=== PATIENT | male | born 1995 | race Caucasian/White ===

== ENCOUNTER 2017-02-09 03:24 | Emergency (ER) | payer OTHER ==
[~2017-02-09] VITALS: Ht 180.3 cm; Wt 60.0 kg
[2017-02-09] MEDS ORDERED: ALBUT/IPRATROP 3MG/0.5MG NEB 3 ML VIAL INH STA (03:32)
[2017-02-09] MEDS ORDERED: SODIUM CHLORIDE 0.9% 1000ML 1,000 ML IV STA (03:32)
[2017-02-09 03:37] VITALS: TEMP 36.5; O2SAT 98; Ht 180.3 cm; Wt 60.0 kg
--- NOTE | 2017-02-09 03:37 | EMERGENCY ROOM VISIT NOTE ---
History Report prepared by Silvana: Flip Moore Under the Supervision of: Dr. Joe Eastman M.D. First contact with patient: 03:26 Stated Complaint: ANXIETY/NEAR SYNCOPE History of Present Illness The patient is a 21 year old male who presents to the Emergency Room via EMS with complaints of a near-syncopal episode that occurred prior to arrival this morning. He says that he woke up prior to arrival feeling anxious and short of breath. Per EMS, the patient was diaphoretic. He states that he felt like he was about to pass out, and he was dizzy. The patient notes that his heart felt like it was racing as well. He adds that he has faint chest pain and a faint headache. The patient says that he has been eating and drinking fine, and denies any falls or injuries. He adds that he has been helping out with a reconstruction of a house, so he may have inhaled some toxins. The patient denies any chronic medical problems or history of blood clots. He says that he smokes a pack and a half of cigarettes per day. Source of History: patient, EMS Onset: Prior to arrival this morning Position: other (global - near syncope) Timing: other (episode) Associated Symptoms: + headache, + chest pain, + SOB Note: Associated symptoms: [place] anxious, dizzy. Diaphoretic. [place] like going to pass out with heart racing. Denies falls or injuries. Review of Systems See HPI for pertinent positives & negatives. A total of 10 systems reviewed and were otherwise negative. Past Medical & Surgical Medical Problems: (1) No chronic problems Family History No pertinent family history Social History Smoking Status: Current Every Day Smoker Marital Status: single Occupation Status: employed Physical Exam Vital Signs Date Time Temp Pulse Resp B/P (MAP) Pulse Ox O2 Delivery O2 Flow Rate FiO2 02/09/17 05:48 77 16 119/69 98 02/09/17 05:44 77 16 119/69 98 Room Air 02/09/17 04:56 85 16 122/64 98 Room Air 02/09/17 04:24 61 16 97 Room Air 02/09/17 03:54 68 22 97 Room Air 02/09/17 03:37 Room Air 97 02/09/17 03:37 36.5 66 16 123/74 97 Room Air 02/09/17 03:37 98 Room Air Physical Exam GENERAL: Patient is mildly anxious appearing, dehydrated appearing and in no acute distress. HEENT: No acute trauma, normocephalic atraumatic, mucous membranes moist, no nasal congestion, no scleral icterus. NECK: No stridor, no adenopathy, no meningismus, trachea is midline. LUNGS: Mild wheezing in bilateral bases. HEART: Regular rate and rhythm. No murmurs, rubs, gallops appreciated. ABDOMEN: Soft, nontender, bowel sounds positive, no masses appreciated, no peritonitis. BACK: No midline tenderness, no CVA tenderness EXTREMITIES: Normal motion all extremities, no cyanosis, no edema. NEUROLOGIC: Alert and oriented, no acute motor or sensory deficits, no focal weakness, cranial nerves grossly intact. SKIN: No rash, no jaundice, no diaphoresis. Medical Decision & Procedures ER Provider Diagnostic Interpretation: X ray results are stated below per my interpretation: Chest: 1 view: No infiltrate, no effusion, normal cardiac border. Laboratory Results 02/09/17 04:15 Red Blood Count 4.65, Mean Corpuscular Volume 88.6, Mean Corpuscular Hemoglobin 31.0, Mean Corpuscular Hemoglobin Concent 35.0, Mean Platelet Volume 9.9, Neutrophils (%) (Auto) 53.4, Lymphocytes (%) (Auto) 30.9, Monocytes (%) (Auto) 10.7, Eosinophils (%) (Auto) 4.1, Basophils (%) (Auto) 0.7, Neutrophils # (Auto ) 4.51, Lymphocytes # (Auto) 2.61, Monocytes # (Auto) 0.90, Eosinophils # (Auto ) 0.35, Basophils # (Auto) 0.06 02/09/17 04:15 Test 02/09/17 04:15 White Blood Count 8.45 K/uL (4.8-10.8) Red Blood Count 4.65 M/uL (4.7-6.1) Hemoglobin 14.4 g/dL (14.0-18.0) Hematocrit 41.2 % (42-52) Mean Corpuscular Volume 88.6 fL (80-100) Mean Corpuscular Hemoglobin 31.0 pg (25-34) Mean Corpuscular Hemoglobin Concent 35.0 g/dl (32-36) Platelet Count 185 K/uL (130-400) Mean Platelet Volume 9.9 fL (7.4-10.4) Neutrophils (%) (Auto) 53.4 % Lymphocytes (%) (Auto) 30.9 % Monocytes (%) (Auto) 10.7 % Eosinophils (%) (Auto) 4.1 % Basophils (%) (Auto) 0.7 % Neutrophils # (Auto) 4.51 K/uL (1.4-6.5) Lymphocytes # (Auto) 2.61 K/uL (1.2-3.4) Monocytes # (Auto) 0.90 K/uL (0.11-0.59) Eosinophils # (Auto) 0.35 K/uL (0-0.5) Basophils # (Auto) 0.06 K/uL (0-0.2) RDW Standard Deviation 42.4 fL (36.4-46.3) RDW Coefficient of Variation 13.0 % (11.5-14.5) Immature Granulocyte % (Auto) 0.2 % Immature Granulocyte # (Auto) 0.02 K/uL (0.00-0.02) D-Dimer < 190 ug/L FEU (0-500) Anion Gap 8.0 mmol/L (3-11) Est Creatinine Clear Calc Drug Dose 126.6 ml/min Estimated GFR () 149.8 Estimated GFR (Non- 129.3 BUN/Creatinine Ratio 13.9 (10-20) Calcium Level 8.9 mg/dl (8.5-10.1) Total Creatine Kinase 196 U/L (39-308) Troponin I < 0.015 ng/ml (0-0.045) Laboratory results as reviewed by me. Medications Administered Medications (Trade) Dose Ordered Sig/Familia Route Start Time Stop Time Status Last Admin Dose Admin Sodium Chloride 1,000 ml @ 999 mls/hr Q1H1M STAT IV 02/09/17 03:32 02/09/17 04:32 DC 02/09/17 04:45 999 MLS/HR Albuterol/ Ipratropium (Duoneb) 3 ml NOW STAT INH 02/09/17 03:32 02/09/17 03:33 DC 02/09/17 04:15 3 ML ECG Indication: SOB/dyspnea Rate (beats per minute): 68 Rhythm: normal sinus Findings: no acute ischemic change, no ectopy ED Course 0328: The patient was evaluated in room B5. A complete history and physical exam was performed. 0332: Ordered Duoneb 3 ml INH, NSS 1000 ml @ 999 mls/hr IV. 0541: I reevaluated the patient and he is feeling much better and would like to go home. The patient verbally expressed understanding and agreement of the treatment plan. The patient will be discharged. Medical Decision Differential: Infectious, Reactive Airway Disease, Pneumonia, Pneumothorax, Arrhythmia, Panic Attack, Pulmonary Embolism, MSK, GI, Dissection, amongst other etiologies entertained. 21 yr old male arrives with vague shortness of breath and feeling near syncopal when he awoke this morning. Mildly anxious on arrival with some slight wheezing bilateral consistent with his chronic smoking though did give him bit of breathing treatment. I think primarily this is dehydration and much improved with fluids, he initially looked dry and he has been working more exertion with house renovation. Labs look good, CXR looks fine, normal EKG, no dimer elevation. Normal on monitor for 2 hours and comfortable. Stressed fluids and rest next 48 hours. RTED if worsening or other concerns. Medication Reconcilliation Current Medication List: was personally reviewed by me None on list. Blood Pressure Screening Patient's blood pressure: Normal blood pressure Impression Primary Impression: Near syncope Scribe Attestation The scribe's documentation has been prepared under my direction and personally reviewed by me in its entirety. I confirm that the note above accurately reflects all work, treatment, procedures, and medical decision making performed by me. Departure Information Dispostion Home / Self-Care Patient Instructions ED Near Syncope Josette, My [facility]
[2017-02-09 04:32] LABS: BASO % 0.7 %; BASO ABS # 0.06 K/uL (0-0.2); COMPLETE YES; EOS % 4.1 %; HEMATOCRIT 41.2 % (42-52); IG% 0.2 %; LYMPH % 30.9 %; LYMPH ABS # 2.61 K/uL (1.2-3.4); MEAN CELL VOLUME 88.6 fL (80-100); MEAN PLATELET VOLUME 9.9 fL (7.4-10.4); MONO % 10.7 %; NEUT % 53.4 %; PLATELET COUNT 185 K/uL (130-400); RED BLOOD COUNT 4.65 M/uL (4.7-6.1); WHITE BLOOD COUNT 8.45 K/uL (4.8-10.8)
[2017-02-09 04:54] LABS: BLOOD UREA NITROGEN 11 mg/dl (7-18); BUN/CREATININE RATIO 13.9 (10-20); CALCIUM 8.9 mg/dl (8.5-10.1); CARBON DIOXIDE 26 mmol/L (21-32); CHLORIDE 108 mmol/L (98-107); CREATININE 0.79 mg/dl (0.60-1.40); GLUCOSE 96 mg/dl (70-99); POTASSIUM 3.5 mmol/L (3.5-5.1); SODIUM 142 mmol/L (136-145)
[2017-02-09 05:48] VITALS: BP 119/69; PULSE 77; O2SAT 98
--- NOTE | 2017-02-09 07:16 | DIAGNOSTIC IMAGING REPORT ---
CHEST ONE VIEW PORTABLE CLINICAL HISTORY: Shortness of breath. Anxiety. COMPARISON STUDY: No previous studies for comparison. FINDINGS: The cardiac and mediastinal contours are normal. There is no evidence of focal pulmonary consolidation. There is no evidence of failure. No pleural effusions are visualized.[ IMPRESSION: No active disease in the chest. Electronically signed by: Eligio Adames M.D. 02/09/2017 7:14 AM Dictated Date/Time: 02/09/2017 7:14 AM
== END 2017-02-09 05:49 | disposition home or self-care (01) ==
LOC: C.EDB 03:26
DX: R55 Syncope and collapse (principal); F17.200 Nicotine dependence, unspecified, uncomplicated

== ENCOUNTER 2017-05-01 19:00 | Emergency (ER) | payer OTHER ==
[~2017-05-01] VITALS: Ht 177.8 cm; Wt 61.8 kg
[2017-05-01 19:02] VITALS: TEMP 36.7; Ht 177.8 cm; Wt 61.8 kg
--- NOTE | 2017-05-01 19:33 | DIAGNOSTIC IMAGING REPORT ---
RIGHT HAND 3 VIEWS CLINICAL HISTORY: Right hand injury/laceration. FINDINGS: 3 views of the right hand are obtained. No prior studies are available for comparison at the time of dictation. The skeletal structures are well mineralized. There is contour deformity of the fifth metacarpal. No definite fracture line is seen. The remaining bony structures appear intact. The joint spaces of the hand are preserved. Soft tissue edema is seen over the dorsal and ulnar aspect of the hand. No radiodense foreign body is seen. IMPRESSION: 1. There is age indeterminant posttraumatic deformity of the fifth metacarpal. No definite acute fracture line is seen. Clinical correlation will be required. 2. No additional findings are concerning for acute fracture. 3. Mild soft tissue edema is present along the dorsal and ulnar aspect of the hand. Electronically signed by: Ayaz Pickard M.D. 05/01/2017 7:31 PM Dictated Date/Time: 05/01/2017 7:29 PM
[2017-05-01] MEDS ORDERED: XYLOCAINE 1%/SOD BICARB 20 ML VIAL INFIL ONE (19:45)
--- NOTE | 2017-05-01 20:04 | EMERGENCY ROOM VISIT NOTE ---
History First contact with patient: 19:12 Chief Complaint: LACERATION/CUT (SUT/DERMABOND) Stated Complaint: CUT ON FINGERS R HAND Nursing Triage Summary: Laceration to right 2nd-4th fingers. Patient states, "I punched a window." History of Present Illness The patient is a 21 year old male who presents to the Emergency Room with complaints of lacerations to his right second, third and fourth fingers. The patient reports that he became angry and punched a window in a house door. He did not notice any glass within the wounds, and currently rates his discomfort a 1 out of 10. The patient is [id number], and tetanus immunization is up-to-date. Review of Systems 10 system review was performed and was negative except for pertinent positives and negatives as indicated in history of present illness Past Medical/Surgical History Medical Problems: (1) No chronic problems Family History FH: heart disease FH: hypertension FH: lung disease FH: seizures No pertinent family history Social History Smoking Status: Current Every Day Smoker Alcohol Use: none Marital Status: single, in relationship Housing Status: lives with family, lives with significant other Occupation Status: employed Current/Historical Medications Scheduled Ondasetron Odt (Zofran Odt), 4 MG SL Q6H Physical Exam Vital Signs Date Time Temp Pulse Resp B/P (MAP) Pulse Ox O2 Delivery O2 Flow Rate FiO2 05/01/17 19:02 36.7 98 18 146/77 97 Room Air Physical Exam CONSTITUTIONAL: Healthy and well nourished. Patient does not appear in any acute distress. HEENT: Normocephalic, atraumatic. Pupils equal, round and reactive. MUSCULOSKELETAL: Examination shows lacerations across the dorsal second, third and fourth PIP joints. The patient does have a 0.75 cm transverse laceration of the index finger, and very small superficial laceration/abrasion of the third and fourth fingers. The patient does have discomfort with flexion and extension, but appears to have all extensor tendon function intact. Capillary refill is less than 2 seconds. No active bleeding noted. INTEGUMENTARY: No rash or other significant dermatologic conditions noted. NEUROLOGIC: Right hand and fingers are sensory intact. Medical Decision & Procedures ER Provider Diagnostic Interpretation: My interpretation of right hand x-rays does not show any acute fractures or dislocations. Radiologist report is as follows: RIGHT HAND 3 VIEWS CLINICAL HISTORY: Right hand injury/laceration. FINDINGS: 3 views of the right hand are obtained. No prior studies are available for comparison at the time of dictation. The skeletal structures are well mineralized. There is contour deformity of the fifth metacarpal. No definite fracture line is seen. The remaining bony structures appear intact. The joint spaces of the hand are preserved. Soft tissue edema is seen over the dorsal and ulnar aspect of the hand. No radiodense foreign body is seen. IMPRESSION: 1. There is age indeterminant posttraumatic deformity of the fifth metacarpal. No definite acute fracture line is seen. Clinical correlation will be required. 2. No additional findings are concerning for acute fracture. 3. Mild soft tissue edema is present along the dorsal and ulnar aspect of the hand. Medications Administered Medications (Trade) Dose Ordered Sig/Familia Route Start Time Stop Time Status Last Admin Dose Admin Lidocaine HCl (Buffered Lidocaine 1% Inj) 20 ml ONE ONCE INFIL 05/01/17 19:45 05/01/17 19:46 DC 05/01/17 19:46 20 ML Procedure Laceration repair of the index finger was performed under local anesthesia after receiving verbal consent from the patient. Using buffered 1% lidocaine without epinephrine, good local anesthesia was administered. The wound was then peripherally cleansed with iodine, then irrigated with approximately 100 mL of normal saline. Aspiration of the wound does not show any involvement of the underlying tendons. No foreign debris is noted. The wound was then approximated using 5-0 nylon simple interrupted sutures. A bacitracin dressing with metal splint and edwige taping was applied. ED Course Patient history and physical exam were performed. Nurse's notes were reviewed. Vital signs were reviewed and were normal. The patient refused any analgesics while in the emergency department. X-rays of the right hand does not show any acute fractures or dislocations. The radiologist does note an age- indeterminate deformity of the fifth metacarpal. The patient reports that he has had a prior history of fifth metacarpal fracture, and clinical exam does not show any tenderness to palpation over this prior fracture site. Laceration repair was performed under local anesthesia. The patient was provided additional verbal and written wound care instructions. Ice and elevation for swelling. Ibuprofen or Tylenol as needed for pain. Suture removal in 10-12 days, or seek reevaluation sooner for any signs of wound infection. A metal splint and edwige taping were applied to the index and third fingers to avoid any undue stress on the wounds. The patient was happy with plan of care, voiced understanding of all discharge instructions, and denied any significant pain at the time of discharge. Medical Decision Medication Reconcilliation Current Medication List: was personally reviewed by me Blood Pressure Screening Patient's blood pressure: Normal blood pressure Impression Primary Impression: Laceration of multiple sites of right hand and fingers without... Departure Information Dispostion Home / Self-Care Forms HOME CARE DOCUMENTATION FORM, IMPORTANT VISIT INFORMATION Patient Instructions My [facility] Additional Instructions Keep all wounds clean and covered with antibiotic ointment and Band-Aids. Suture removal in 10-12 days. Return sooner for any signs of infection (increasing redness, swelling, drainage ). Ice and elevate for swelling and pain. Ibuprofen 600 mg and/or Tylenol 1000 mg every 6 hrs if needed for pain. Problem Qualifiers Primary Impression: Laceration of multiple sites of right hand and fingers without... Encounter type: initial encounter Qualified Codes: S61.411A - Laceration without foreign body of right hand, initial encounter; S61.219A - Laceration without foreign body of unspecified finger without damage to nail, initial encounter
[2017-05-01] MEDS ORDERED: ONDA4TAB10 SL (20:10)
[2017-05-01 20:18] VITALS: BP 126/76; PULSE 90; O2SAT 96
== END 2017-05-01 20:20 | disposition home or self-care (01) ==
LOC: C.EDB 19:01 → C.EDD 20:20
DX: S61.210A Laceration without foreign body of right index finger without damage to nail, initial encounter (principal); S61.212A Laceration without foreign body of right middle finger without damage to nail, initial encounter; W45.8XXA Other foreign body or object entering through skin, initial encounter; F17.200 Nicotine dependence, unspecified, uncomplicated; Z82.49 Family history of ischemic heart disease and other diseases of the circulatory system; Z82.0 Family history of epilepsy and other diseases of the nervous system